=== PATIENT | female | born 1995 | race Two or more races ===

== ENCOUNTER 2016-12-07 12:30 | Inpatient (IN) | payer OTHER ==
[~2016-12-07] VITALS: Ht 160 cm; Wt 56.2 kg
[2016-12-07 12:39] VITALS: BP 129/77
[2016-12-07] MEDS ORDERED: NKM (12:48)
[2016-12-07] MEDS ORDERED: Unasyn 3gm Inj IVPB ONE (13:00)
[2016-12-07] MEDS ORDERED: Ampicillin/Sulbactam Sod 3 GM in NS 110 ML IVPB ONE (13:15)
[2016-12-07 13:37] LABS: BASOPHILS % (AUTO) 0.6 % (0.0-2.0); EOSINOPHILS % (AUTO) 0.8 % (0.0-3.0); LYMPHOCYTES % (AUTO) 26.1 % (20.0-45.0); MEAN CORPUSCULAR HEMOGLOBIN 30.3 PG (27.0-31.0); MEAN CORPUSCULAR HGB CONC 34.5 G/DL (32.0-36.0); MEAN CORPUSCULAR VOLUME 88 FL (80-99); MEAN PLATELET VOLUME 7.7 FL (6.5-10.1); MONOCYTES % (AUTO) 5.3 % (1.0-10.0); NEUTROPHILS % (AUTO) 67.2 % (45.0-75.0); PLATELET COUNT 315 K/UL (150-450); RED BLOOD COUNT 4.47 M/UL (4.20-5.40); RED CELL DISTRIBUTION WIDTH 10.8 % (11.6-14.8); WHITE BLOOD COUNT 8.2 K/UL (4.8-10.8)
[2016-12-07 13:41] LABS: APPEARANCE,URINE CLOUDY; KETONES,URINE NEGATIVE (NEGATIVE); LEUKOCYTE ESTERASE ,URINE 3+ (NEGATIVE); NITRITE,URINE POSITIVE (NEGATIVE); PH,URINE 7 (4.5-8.0); PROTEIN,URINE NEGATIVE (NEGATIVE); UROBILINOGEN,URINE NORMAL MG/DL (0.0-1.0)
[2016-12-07 13:45] LABS: INR 0.9 (0.9-1.1); PROTHROMBIN TIME 9.4 SEC (9.30-11.50)
[2016-12-07 13:51] LABS: ALANINE AMINOTRANSFERASE 11 U/L (3-33); ALBUMIN/GLOBULIN RATIO 1.4 (1.0-2.7); ANION GAP 18 (5-15); ASPARTATE AMINO TRANSFERASE 19 U/L (5-40); CALCIUM 9.6 mg/dL (8.6-10.2); CARBON DIOXIDE 22 mEQ/L (20-30); CHLORIDE 101 mEQ/L (98-107); CREATININE 0.6 mg/dL (0.5-0.9); GLOMERULAR FILTRATION RATE > 60 mL/min (>60); HEMOLYSIS 17; LIPASE 45 U/L (< 60); POTASSIUM 3.9 mEQ/L (3.4-4.9); SODIUM 141 mEQ/L (135-145); TOTAL PROTEIN 7.6 g/dL (6.6-8.7)
[2016-12-07 14:11] LABS: BACTERIA,URINE MODERATE /HPF; RBC,URINE 0-2 /HPF (0 - 2); SQUAMOUS EPITHELIAL CELL,UR FEW /LPF (NONE/OCC); WBC,URINE 30-40 /HPF (0 - 2)
[2016-12-07] MEDS ORDERED: Morphine Sulfate 2mg/ml Inj IVP PRN (14:30)
[2016-12-07] MEDS ORDERED: Mylanta II UD 30ml ORAL PRN (14:30)
[2016-12-07] MEDS ORDERED: Morphine Sulfate 4mg/ml Inj IVP PRN (14:30)
[2016-12-07 16:00] VITALS: BP 117/71
--- NOTE | 2016-12-07 16:37 | Emergency Room Report ---
History of Present Illness General Chief Complaint: General Complaint Source: Patient Present Illness [facility] The patient is a 21-year-old female with a history of hidradenitis suppurativa presenting for admission for the same diagnosis. She states that she has had this infection on and off for many years which has been treated many times with oral antibiotics but has always return. She states that the infection is in the inguinal regions and between the breasts. She was seen by Dr. Laird who will be performing her surgery tomorrow. She denies any symptoms including nausea, vomiting, fever, chills, pain, dysuria, hematuria, diarrhea Allergies: Coded Allergies: No Known Allergies (Unverified , 12/07/16) Patient History Past Medical History: see triage record Pertinent Family History: none Last Menstrual Period: 11/21/2016 Now: No Reviewed Nursing Documentation: PMH: Agreed, PSxH: Agreed Nursing Documentation-PMH Past Medical History: No History, Except For Hx Cardiac Problems: No Hx Cancer: No Hx Gastrointestinal Problems: No Hx Neurological Problems: No Review of Systems All Other Systems: negative except mentioned in HPI Physical Exam Vital Signs Date Time Temp Pulse Resp B/P (MAP) Pulse Ox O2 Delivery O2 Flow Rate FiO2 12/07/16 12:39 98.4 76 14 129/77 99 Room Air Sp02 EP Interpretation: reviewed, normal General Appearance: no apparent distress, alert, GCS 15, non-toxic Head: normocephalic, atraumatic Eyes: bilateral eye normal inspection, bilateral eye PERRL ENT: hearing grossly normal, normal pharynx, no angioedema, normal voice Neck: full range of motion, supple/symm/no masses Respiratory: chest non-tender, lungs clear, normal breath sounds, speaking full sentences Cardiovascular #1: regular rate, rhythm, no edema Musculoskeletal: back normal, gait/station normal, normal range of motion, non- tender Neurologic: alert, oriented x3, responsive, motor strength/tone normal, sensory intact, speech normal Psychiatric: judgement/insight normal, memory normal, mood/affect normal, no suicidal/homicidal ideation Skin: rash - Multiple nodules consistent with hidradenitis supurrativa of the inguinal regions and central chest Lymphatic: no adenopathy Medical Decision Making PA Attestation Dr. Donnelly is my supervising physician. Patient management was discussed with my supervising physician Diagnostic Impression: Primary Impression: Encounter for generalized patient complaints Additional Impressions: Abscess Urinary tract infection Qualified Codes: N30.00 - Acute cystitis without hematuria ER Course The patient is a 21-year-old female with a history of hidradenitis suppurativa presenting for admission Differential diagnoses considered but not limited to: Cellulitis, abscess, dermatitis, hidradenitis suppurativa, among others PE: afebrile. NAD Multiple erythematous nodules in the inguinal regions and central chest consistent with hidradenitis suppurativa. No draining. Minimally tender. No surrounding erythema. Otherwise exam unremarkable Bloodwork unremarkable. No leukocytosis Urinalysis is consistent with urinary tract infection The patient is given IV fluids and Unasyn. She'll be admitted in stable condition for surgery tomorrow. She agrees with this plan Laboratory Tests Test 12/07/16 12:43 12/07/16 13:15 Urine Color Pale yellow Urine Appearance Cloudy Urine pH 7 (4.5-8.0) Urine Specific [place] 1.005 (1.005-1.035) Urine Protein Negative (NEGATIVE) Urine Glucose (UA) Negative (NEGATIVE) Urine Ketones Negative (NEGATIVE) Urine Occult Blood Negative (NEGATIVE) Urine Nitrite Positive (NEGATIVE) H Urine Bilirubin Negative (NEGATIVE) Urine Urobilinogen Normal MG/DL (0.0-1.0) Urine Leukocyte Esterase 3+ (NEGATIVE) H Urine RBC 0-2 /HPF (0 - 2) Urine WBC 30-40 /HPF (0 - 2) H Urine Squamous Epithelial Cells Few /LPF (NONE/OCC) Urine Bacteria Moderate /HPF (NONE) H Urine HCG, Qualitative Negative White Blood Count 8.2 K/UL (4.8-10.8) Red Blood Count 4.47 M/UL (4.20-5.40) Hemoglobin 13.6 G/DL (12.0-16.0) Hematocrit 39.3 % (37.0-47.0) Mean Corpuscular Volume 88 FL (80-99) Mean Corpuscular Hemoglobin 30.3 PG (27.0-31.0) Mean Corpuscular Hemoglobin Concent 34.5 G/DL (32.0-36.0) Red Cell Distribution Width 10.8 % (11.6-14.8) L Platelet Count 315 K/UL (150-450) Mean Platelet Volume 7.7 FL (6.5-10.1) Neutrophils (%) (Auto) 67.2 % (45.0-75.0) Lymphocytes (%) (Auto) 26.1 % (20.0-45.0) Monocytes (%) (Auto) 5.3 % (1.0-10.0) Eosinophils (%) (Auto) 0.8 % (0.0-3.0) Basophils (%) (Auto) 0.6 % (0.0-2.0) Prothrombin Time 9.4 SEC (9.30-11.50) Prothrombin Time INR 0.9 (0.9-1.1) PTT 25 SEC (23-33) Sodium Level 141 mEQ/L (135-145) Potassium Level 3.9 mEQ/L (3.4-4.9) Chloride Level 101 mEQ/L (98-107) Carbon Dioxide Level 22 mEQ/L (20-30) Anion Gap 18 (5-15) H Blood Urea Nitrogen 7 mg/dL (7-23) Creatinine 0.6 mg/dL (0.5-0.9) Estimate Glomerular Filtration Rate > 60 mL/min (>60) Glucose Level 100 mg/dL (74-106) Calcium Level 9.6 mg/dL (8.6-10.2) Total Bilirubin 0.3 mg/dL (0.0-1.2) Aspartate Amino Transferase (AST) 19 U/L (5-40) Alanine Aminotransferase (ALT) 11 U/L (3-33) Alkaline Phosphatase 77 U/L (35-104) Total Protein 7.6 g/dL (6.6-8.7) Albumin 4.5 g/dL (3.5-5.2) Globulin 3.1 g/dL Albumin/Globulin Ratio 1.4 (1.0-2.7) Lipase 45 U/L (< 60) Lab Results Impression All blood work is unremarkable. Urinalysis is consistent with urinary tract infection Last Vital Signs Date Time Temp Pulse Resp B/P (MAP) Pulse Ox O2 Delivery O2 Flow Rate FiO2 12/07/16 14:53 98.4 81 16 127/75 100 Room Air Status: improved Disposition: ADMITTED INPATIENT Condition: Stable Referrals: [facility] (PCP) TED FOSTER Dec 07, 2016 16:37
--- NOTE | 2016-12-07 17:03 | History and Physical ---
History of Present Illness General Date patient seen: Dec 07, 2016 Time patient seen: 17:03 Reason for Hospitalization: abscess Present Illness HPI 21y/o female with pmh of hidradenitis suppurativa presenting with worsening pain /swelling/redness/drainages. She states that she has had this infection on and off for many years which has been treated many times with oral antibiotics but it has always returned. She states that the infection is in the inguinal regions and between the breasts. Symptoms are worsening. No reports of f/c, n/v , d/c, chest pain, SOB. At baseline pt able to ambulate several blocks and climb several flights of stairs without chest pain and SOB. Allergies: Coded Allergies: No Known Allergies (Unverified , 12/07/16) Medication History Scheduled No Known Medications* (NKM - No Known Medications*), 0 ., (Reported) Patient History History Provided By: Patient, Family Member, Medical Record, PMD Healthcare decision maker Resuscitation status Full Code Advanced Directive on File Past Medical/Surgical History Past Medical/Surgical History: (1) Hidradenitis suppurativa Family History Family History: Patient reports no known family medical history. Social History Social History: (1) No significant social history Review of Systems ROS Narrative CONSTITUTIONAL: No weight loss, fever, chills, weakness or fatigue. HEENT: Eyes: No visual loss, blurred vision, double vision or yellow sclerae. Ears, Nose, Throat: No hearing loss, sneezing, congestion, runny nose or sore throat. SKIN: No rash or itching. CARDIOVASCULAR: No chest pain, chest pressure or chest discomfort. No palpitations or edema. RESPIRATORY: No shortness of breath, cough or sputum. GASTROINTESTINAL: No anorexia, nausea, vomiting or diarrhea. No abdominal pain or blood. NEUROLOGICAL: No headache, dizziness, syncope, paralysis, ataxia, numbness or tingling in the extremities. No change in bowel or bladder control. MUSCULOSKELETAL: No muscle, back pain, joint pain or stiffness. HEMATOLOGIC: No anemia, bleeding or bruising. LYMPHATICS: No enlarged nodes. No history of splenectomy. PSYCHIATRIC: No history of depression or anxiety. ENDOCRINOLOGIC: No reports of sweating, cold or heat intolerance. No polyuria or polydipsia. ALLERGIES: No history of asthma, hives, eczema or rhinitis. Physical Exam Physical Exam Narrative General: alert, cooperative, no distress, appears stated age Head: normocephalic, without obvious abnormality, atraumatic Eyes: conjunctivae/corneas clear. PERRL, EOM's intact Throat: lips, mucosa, and tongue normal. MMM Neck: supple, symmetrical, trachea midline, and no JVD Lungs: clear to auscultation bilaterally Heart: regular rate and rhythm, S1, S2 normal, no murmur, click, rub or gallop Abdomen: soft, non-tender, non-distended, bowel sounds normal; no masses or organomegaly Extremities: extremities normal, atraumatic, no cyanosis or edema Pulses: 2+ and symmetric Skin: Multiple nodules consistent with hidradenitis supurrativa of the inguinal regions and central chest Neurologic: grossly normal, no focal deficits Last 24 Hour Vital Signs Date Time Temp Pulse Resp B/P (MAP) Pulse Ox O2 Delivery O2 Flow Rate FiO2 12/07/16 16:00 98.5 90 16 117/71 98 Room Air 12/07/16 14:53 98.4 81 16 127/75 100 Room Air 12/07/16 12:39 98.4 76 14 129/77 99 Room Air 12/07/16 12:39 98.4 76 14 129/77 99 Room Air Intake and Output 12/07/16 12/08/16 19:00 07:00 Intake Total 1110 ml Balance 1110 ml Intake IV Total 1110 ml # Voids 1 Laboratory Tests Test 12/07/16 12:43 12/07/16 13:15 Urine Color Pale yellow Urine Appearance Cloudy Urine pH 7 (4.5-8.0) Urine Specific [place] 1.005 (1.005-1.035) Urine Protein Negative (NEGATIVE) Urine Glucose (UA) Negative (NEGATIVE) Urine Ketones Negative (NEGATIVE) Urine Occult Blood Negative (NEGATIVE) Urine Nitrite Positive (NEGATIVE) H Urine Bilirubin Negative (NEGATIVE) Urine Urobilinogen Normal MG/DL (0.0-1.0) Urine Leukocyte Esterase 3+ (NEGATIVE) H Urine RBC 0-2 /HPF (0 - 2) Urine WBC 30-40 /HPF (0 - 2) H Urine Squamous Epithelial Cells Few /LPF (NONE/OCC) Urine Bacteria Moderate /HPF (NONE) H Urine HCG, Qualitative Negative White Blood Count 8.2 K/UL (4.8-10.8) Red Blood Count 4.47 M/UL (4.20-5.40) Hemoglobin 13.6 G/DL (12.0-16.0) Hematocrit 39.3 % (37.0-47.0) Mean Corpuscular Volume 88 FL (80-99) Mean Corpuscular Hemoglobin 30.3 PG (27.0-31.0) Mean Corpuscular Hemoglobin Concent 34.5 G/DL (32.0-36.0) Red Cell Distribution Width 10.8 % (11.6-14.8) L Platelet Count 315 K/UL (150-450) Mean Platelet Volume 7.7 FL (6.5-10.1) Neutrophils (%) (Auto) 67.2 % (45.0-75.0) Lymphocytes (%) (Auto) 26.1 % (20.0-45.0) Monocytes (%) (Auto) 5.3 % (1.0-10.0) Eosinophils (%) (Auto) 0.8 % (0.0-3.0) Basophils (%) (Auto) 0.6 % (0.0-2.0) Prothrombin Time 9.4 SEC (9.30-11.50) Prothromb Time International Ratio 0.9 (0.9-1.1) Activated Partial Thromboplast Time 25 SEC (23-33) Sodium Level 141 mEQ/L (135-145) Potassium Level 3.9 mEQ/L (3.4-4.9) Chloride Level 101 mEQ/L (98-107) Carbon Dioxide Level 22 mEQ/L (20-30) Anion Gap 18 (5-15) H Blood Urea Nitrogen 7 mg/dL (7-23) Creatinine 0.6 mg/dL (0.5-0.9) Estimat Glomerular Filtration Rate > 60 mL/min (>60) Glucose Level 100 mg/dL (74-106) Calcium Level 9.6 mg/dL (8.6-10.2) Total Bilirubin 0.3 mg/dL (0.0-1.2) Aspartate Amino Transf (AST/SGOT) 19 U/L (5-40) Alanine Aminotransferase (ALT/SGPT) 11 U/L (3-33) Alkaline Phosphatase 77 U/L (35-104) Total Protein 7.6 g/dL (6.6-8.7) Albumin 4.5 g/dL (3.5-5.2) Globulin 3.1 g/dL Albumin/Globulin Ratio 1.4 (1.0-2.7) Lipase 45 U/L (< 60) Height (Feet): 5 Height (Inches): 4.00 Weight (Pounds): 125 Medications Current Medications Medications (Trade) Dose Ordered Sig/Coty Route PRN Reason Start Time Stop Time Status Last Admin Dose Admin Acetaminophen (Tylenol) 650 mg Q4H PRN ORAL Mild Pain (Pain Scale 1-3) 12/07/16 14:30 01/06/17 14:29 Al Hydroxide/Mg Hydroxide (Mylanta II) 30 ml Q6H PRN ORAL dyspepsia 12/07/16 14:30 01/06/17 14:29 Bisacodyl (Dulcolax) 10 mg HSPRN PRN RECTAL Constipation 12/07/16 21:00 01/06/17 20:59 Dextrose (Dextrose 50%) STAT PRN IV Hypoglycemia 12/07/16 14:30 01/06/17 14:29 Dextrose/Sodium Chloride 1,000 ml @ 75 mls/hr [id number] IV 12/08/16 06:00 01/07/17 05:59 Diphenhydramine HCl (Benadryl) 25 mg Q6H PRN ORAL Itching/Pruritis 12/07/16 14:30 01/06/17 14:29 Docusate Sodium (Colace) 100 mg EVERY 12 HOURS ORAL 12/07/16 21:00 01/06/17 20:59 Magnesium Hydroxide (Mom) 30 ml HSPRN PRN ORAL Constipation 12/07/16 21:00 01/06/17 20:59 Morphine Sulfate (Morphine Sulfate) 2 mg Q4H PRN IVP Moderate Pain (Pain Scale 4-6) 12/07/16 14:30 12/14/16 14:29 Morphine Sulfate (Morphine Sulfate) 4 mg Q4H PRN IVP Severe Pain (Pain Scale 7-10) 12/07/16 14:30 12/14/16 14:29 Polyethylene Glycol (Miralax) 17 gm HSPRN PRN ORAL Constipation 12/07/16 21:00 01/06/17 20:59 Zolpidem Tartrate (Ambien) 5 mg HSPRN PRN ORAL Insomnia 12/07/16 21:00 12/14/16 20:59 Assessment/Plan Problem List: (1) Abscess ICD Codes: L02.91 - Cutaneous abscess, unspecified SNOMED: 561724320 (2) Hidradenitis suppurativa ICD Codes: L73.2 - Hidradenitis suppurativa SNOMED: 10718324 Status: stable Assessment/Plan Admit inpt Plastic surgery consulted Check blood cultures x 2 IV ancef Pain control, bowel regimen Supportive care If patient is required to have surgery, based on the patient's medical history, and other available ancillary data, the patient is a LOW risk for an INTERMEDIATE risk procedure. Per the most recent ACC/AHA guidelines, the patient does not need any further cardiopulmonary testing prior to the procedure and there do not appear to be any clear medical contraindications to proceeding with the proposed procedure. D/w pt/family, RN, surgery regarding mgmt and dispo. D/w Dr. Laird regarding plan for OR tomorrow Roberta Grider M.D. Dec 07, 2016 17:03
[2016-12-07 20:00] VITALS: BP 133/92
[2016-12-07] MEDS ORDERED: Miralax 17gm pkt ORAL PRN (21:00)
[2016-12-07] MEDS ORDERED: Milk of Magnesia 30ml Ud ORAL PRN (21:00)
[2016-12-07] MEDS ORDERED: Zolpidem 5mg tab ORAL PRN (21:00)
[2016-12-07] MEDS: Docusate 100mg cap ORAL SCH (21:02)
[2016-12-07] MEDS: ceFAZolin 1gm in D5W 55ml IVP SCH (21:02)
[2016-12-07] MEDS ORDERED: ceFAZolin 1gm/50ml Premix 50 ML IV SCH (22:00)
[2016-12-08] VITALS (15 sets, daily range): BP systolic 111–132; BP diastolic 66–86
[2016-12-08] MEDS: D5 1/2NS 1,000 ML IV SCH ×2 (05:32→19:20)
[2016-12-08] MEDS: ceFAZolin 1gm in D5W 55ml IVP SCH ×3 (05:32→20:59)
[2016-12-08] MEDS: Docusate 100mg cap ORAL SCH ×2 (08:04→20:59)
--- NOTE | 2016-12-08 10:00 | Pre-Procedure Note/Attestation ---
Pre-Procedure Note/Attestation Complete Prior to Procedure Planned Procedure: bilateral Procedure Narrative: Debridement of bilateral groin tissue and flap closure with excision of central chest tissue Attestation I attest that I discussed the nature of the procedure; its benefits; risks and complications; and alternatives (and the risks and benefits of such alternatives ), prior to the procedure, with the patient (or the patient's legal field representatives director). I attest that, if there was a reasonable possibility of needing a blood transfusion, the patient (or the patient's legal field representatives director) was given the [facility] standardized written summary, pursuant to the [place] Blood Safety Act ([place] Health and Safety Code # 1645, as amended). I attest that I re-evaluated the patient just prior to the surgery and that there has been no change in the patient's H&P, except as documented below: WARREN HOLLOWAY Dec 08, 2016 10:00
[2016-12-08] MEDS ORDERED: NeoSporin Gu Irrig 1ml Amp IRRIG ONE (10:26)
[2016-12-08] MEDS ORDERED: Bacitracin 50000 Units Vial ONE (10:26)
[2016-12-08] MEDS ORDERED: Surgicel 4in x 8in TOPIC ONE (10:26)
[2016-12-08] MEDS ORDERED: Lidocaine 1% 10mg/ml/Epi 0.005mg/ml 10ml vial ONE ×2 (10:26→10:43)
[2016-12-08] MEDS ORDERED: Lidocaine 1% 10mg/ml/Epi 0.005mg/ml 30ml vial INJ ONE (10:30)
[2016-12-08] MEDS ORDERED: Ketorolac 30mg Inj ONE (10:45)
[2016-12-08] MEDS ORDERED: fentaNYL 100 mcg/2 mL IV ONE (10:45)
[2016-12-08] MEDS ORDERED: Morphine Sulfate 10mg/ml Inj ONE (10:45)
[2016-12-08] MEDS ORDERED: Propofol 200mg/20ml IV ONE (10:45)
[2016-12-08] MEDS ORDERED: Midazolam 2mg/2ml Inj ONE (10:45)
[2016-12-08] MEDS ORDERED: LR 1000ml ONE (10:45)
[2016-12-08] MEDS ORDERED: Rate Change PCA 1 Each MISC PRN (11:00)
[2016-12-08] MEDS ORDERED: DiphenhydrAMINE 50mg/ml Inj IVP PRN ×2 (11:00→11:45)
[2016-12-08] MEDS ORDERED: PCA Education Pamphlet MISC SCH (11:00)
[2016-12-08] MEDS ORDERED: LR 1000ml 1,000 ML IVLG SCH (11:43)
[2016-12-08] MEDS ORDERED: Neosporin Oint Ud Pkt TOPIC ONE (11:43)
--- NOTE | 2016-12-08 11:43 | Anethesia Preoperative Eval ---
Anesthesia Pre-op PMH/ROS General Date of Evaluation: Dec 08, 2016 Time of Evaluation: 10:40 Anesthesiologist: Laurel ASA Score: ASA 2 Mallampati Score Class I : Soft palate, uvula, fauces, pillars visible Class II: Soft palate, uvula, fauces visible Class III: Soft palate, base of uvula visible Class IV: Only hard plate visible Mallampati Classification: Class II Surgeon: Sisi Diagnosis: recurrent HS Surgical Procedure: Excision of bilateral groin HS Anesthesia History: none Family History: no anesthesia problems Allergies: Coded Allergies: No Known Allergies (Unverified , 12/07/16) Medications: see eMAR Past Medical History Cardiovascular: Denies: HTN, CAD, [place], valve dz, arrhythmia, other Pulmonary: Denies: asthma, COPD, [place], other Gastrointestinal/Genitourinary: Denies: GERD, CRI, ESRD, other Neurologic/Psychiatric: Reports: depression/anxiety, Denies: dementia, CVA, TIA, other Endocrine: Denies: DM, hypothyroidism, steroids, other HEENT: Denies: cataract (L), cataract (R), glaucoma, [place] (L[place] (R), other Hematology/Immune: Denies: anemia, DVT, bleeding disorder, other Musculoskeletal/Integumentary: Reports: other - recurrent hs, Denies: OA, RA, DJD, DDD, edema PMH Narrative: as above PSxH Narrative: excision of pilonidal cyst Anesthesia Pre-op Phys. Exam Physician Exam Last Vital Signs Date Time Temp Pulse Resp B/P (MAP) Pulse Ox O2 Delivery O2 Flow Rate FiO2 12/08/16 08:35 99.7 119 17 131/86 97 Room Air Constitutional: NAD Neurologic: CN 2-12 intact Cardiovascular: RRR, no M/R/G Respiratory: CTA Gastrointestinal: S/NT/ND Airway Exam Mallampati Score: Class II MO: full Neck: flexivle ROM: full Teeth: intact Dentures: no upper, no lower Anesthesia Pre-op A/P Labs Hematology Test 12/07/16 13:15 White Blood Count 8.2 K/UL (4.8-10.8) Red Blood Count 4.47 M/UL (4.20-5.40) Hemoglobin 13.6 G/DL (12.0-16.0) Hematocrit 39.3 % (37.0-47.0) Mean Corpuscular Volume 88 FL (80-99) Mean Corpuscular Hemoglobin 30.3 PG (27.0-31.0) Mean Corpuscular Hemoglobin Concent 34.5 G/DL (32.0-36.0) Red Cell Distribution Width 10.8 % (11.6-14.8) L Platelet Count 315 K/UL (150-450) Mean Platelet Volume 7.7 FL (6.5-10.1) Neutrophils (%) (Auto) 67.2 % (45.0-75.0) Lymphocytes (%) (Auto) 26.1 % (20.0-45.0) Monocytes (%) (Auto) 5.3 % (1.0-10.0) Eosinophils (%) (Auto) 0.8 % (0.0-3.0) Basophils (%) (Auto) 0.6 % (0.0-2.0) Coagulation Test 12/07/16 13:15 Prothrombin Time 9.4 SEC (9.30-11.50) Prothromb Time International Ratio 0.9 (0.9-1.1) Activated Partial Thromboplast Time 25 SEC (23-33) Chemistry Test 12/07/16 13:15 Sodium Level 141 mEQ/L (135-145) Potassium Level 3.9 mEQ/L (3.4-4.9) Chloride Level 101 mEQ/L (98-107) Carbon Dioxide Level 22 mEQ/L (20-30) Anion Gap 18 (5-15) H Blood Urea Nitrogen 7 mg/dL (7-23) Creatinine 0.6 mg/dL (0.5-0.9) Estimat Glomerular Filtration Rate > 60 mL/min (>60) Glucose Level 100 mg/dL (74-106) Calcium Level 9.6 mg/dL (8.6-10.2) Total Bilirubin 0.3 mg/dL (0.0-1.2) Aspartate Amino Transf (AST/SGOT) 19 U/L (5-40) Alanine Aminotransferase (ALT/SGPT) 11 U/L (3-33) Alkaline Phosphatase 77 U/L (35-104) Total Protein 7.6 g/dL (6.6-8.7) Albumin 4.5 g/dL (3.5-5.2) Globulin 3.1 g/dL Albumin/Globulin Ratio 1.4 (1.0-2.7) Lipase 45 U/L (< 60) Urine Test Test 12/07/16 12:43 Urine HCG, Qualitative Negative Risk Assessment & Plan Assessment: ASA 2 Plan: GA wt LMA ponv prevention Status Change Before Surgery: No Pre-Antibiotics Drug: Ancef 1gr. Given Within 1 Hr of Incision: Yes Time Given: 11:10 MIKAYLA TORRES M.D. Dec 08, 2016 11:43
[2016-12-08] MEDS ORDERED: Meperidine 25mg/0.5ml Inj (FOR RIGORS ONLY) IV PRN (11:45)
[2016-12-08] MEDS ORDERED: Hydromorphone 0.5mg/0.5ml inj IVP PRN (11:45)
[2016-12-08] MEDS ORDERED: Metoclopramide 10mg/2ml Inj IVP PRN (11:45)
[2016-12-08] MEDS ORDERED: Midazolam 2mg/2ml Inj IVP PRN (11:45)
[2016-12-08] MEDS ORDERED: Ketorolac 30mg Inj IV PRN (11:45)
--- NOTE | 2016-12-08 12:45 | Operative Note - PDOC ---
Operative Note Operative Note Pre-op Diagnosis: Bilateral groin and chest wall infection HS Procedure: Debridement of bilateral groin and chest wall tissue with flap elevation and closure of the groin wounds Surgeon: [facility] Security Director: Yoandy Anesthesia: general Specimen: yes Complications: none Condition: stable Estimated Blood Loss: minimal Drains: DENNISE Implant(s) used?: No WARREN HOLLOWAY Dec 08, 2016 12:45
--- NOTE | 2016-12-08 13:00 | Immediate Post-Op Evaluation ---
Immediate Post-Op Evalulation Immediate Post-Op Evalulation Procedure: Excision of bilateral groin and chest wall HS Date of Evaluation: Dec 08, 2016 Time of Evaluation: 12:59 IV Fluids: 1200 Blood Products: none Estimated Blood Loss: 50 Urinary Output: 150 Blood Pressure Systolic: 124 Blood Pressure Diastolic: 73 Pulse Rate: 108 Respiratory Rate: 20 O2 Sat by Pulse Oximetry: 99 Temperature (Fahrenheit): 98.1 Pain Score (1-10): 2 Nausea: No Vomiting: No Complications none Patient Status: reacts, patent, none MIKAYLA TORRES M.D. Dec 08, 2016 13:00
[2016-12-08] MEDS: PCA HYDROmorphone 1mg/ml 30 ML IV PRN (13:06)
[2016-12-08] MEDS ORDERED: Tubing IV Secondary IV ONE (16:25)
[2016-12-08] MEDS ORDERED: D5 1/2NS 1000ml IV ONE (16:25)
--- NOTE | 2016-12-08 16:31 | Cardiology Report ---
APPROVED REPORT EKG Measurement Heart [id number] [id number] Sinus rhythm with short GA Abnormal QRS-T angle, consider primary T wave abnormality Abnormal ECG
[2016-12-08] MEDS ORDERED: Docusate 100mg cap ORAL SCH (18:00)
[2016-12-08] MEDS ORDERED: LORazepam 0.5mg tab ORAL ONE (18:30)
[2016-12-08] MEDS ORDERED: LORazepam Inj 2mg/ml 1ml IV ONE (18:30)
[2016-12-08] MEDS: PCA shift volume MISC SCH (19:50)
[2016-12-08] MEDS: Heparin 5000 units/ml inj SUBQ SCH (21:04)
--- NOTE | 2016-12-09 00:15 | Consultation ---
DATE OF CONSULTATION: 12/08/2016 History Of Present Illness: This is a 21-year-old female, admitted by the medical team for bilateral groin and chest wall abscesses associated with hidradenitis. She was started on IV antibiotics and upon evaluation by me, I felt that she was an appropriate candidate for surgical treatment of her condition. PAST MEDICAL HISTORY: Significant for hidradenitis suppurativa. PAST SURGICAL HISTORY: None. MEDICATIONS: Previous use of Humira. ALLERGIES: None. PHYSICAL EXAMINATION: GENERAL: The patient is alert and oriented. HEART: Regular rhythm. LUNGS: Clear to auscultation bilaterally. Skin: She has evidence of an abscess in the central chest, just over the sternum in the cleavage region and she also has evidence of bilateral groin hidradenitis, stage II. Assessment And Plan: This is a 21-year-old female, will require radical excision of the involved infected tissues in her groins and her chest with reconstruction. She understands the plan and agrees to proceed. Wilmer Laird M.D. DR: APPLE JOB#: [id number] CC:
--- NOTE | 2016-12-09 00:30 | Operative Note - Dictated ---
DATE OF OPERATION: 12/08/2016 PREOPERATIVE DIAGNOSES: 1. Central chest wall abscess associated with hidradenitis. 2. Bilateral groin infected tissue. POSTOPERATIVE DIAGNOSES: 1. Central chest wall abscess associated with hidradenitis. 2. Bilateral groin infected tissue. PROCEDURES: 1. Radical excision of right groin tissue. 2. Radical excision of left groin tissue. 3. Elevation of a right-sided medial thigh flap for closure of right groin wound. 4. Elevation of a right-sided medial groin flap for closure of right groin wound. 5. Elevation of a left-sided medial thigh flap for closure of left groin wound. 6. Elevation of a left medial groin flap for closure of left groin wound. 7. Radical excision of central chest wall tissue. SURGEON: Wilmer Laird M.D. AGRICULTURAL EQUIPMENT SALES ENGINEER: Andrea Pitt M.D. ANESTHESIA: General. COMPLICATIONS: None. DRAINS: Included one DENNISE in each groin. DISPOSITION: Stable to the recovery room. Indications For Surgery: This is a 21-year-old female, who has a history of hidradenitis suppurativa with evidence of infected tissues in her groin as well as in her central chest. Upon evaluation by me, I felt that she was an appropriate candidate for radical excision of these areas with a staged reconstruction. The degree of infection in her central chest was more so than it was present in her groins and I felt that the groins could be primarily closed with flap elevation, however, the central chest wound had enough infection where I felt that she would require a staged approach for closure of this area. She understood the risks and benefits of surgery and agreed to proceed. Details Of The Operation: The patient was brought to the operating room and laid supine on the operating room table. Her bilateral groin and her chest were prepped and draped in a sterile and usual fashion. We first began by marking out the areas of infected tissues in both groins. These were marked out with an elliptical type of incisions. Once this was done, we injected a total of 5 mL of lidocaine with epinephrine into each groin and then used a #10 blade to first make a left-sided groin incision to completely radically excise the infected tissue all the way down to the level of the adductor fascia. Once the specimen was completely removed with the use of a knife and electrocautery, we noted the defect that resulted in the left side was 10 x 5 cm and was clearly not amenable to definitive primary closure. As such, flaps had to be elevated on both sides of the wound to allow for a tension-free repair. We first began by elevating the medial thigh flap on that side based off of perforators of the superficial femoral artery with proximal and distal incisions made to fully mobilize the flap and the flap was elevated just above the adductor fascia. We then proceeded to elevate the medial groin flap on the same side based off of perforators of the superficial inferior epigastric artery with proximal and distal incisions made to fully mobilize this flap. With this done, we noted that the flap could be brought together without any tension and definitively close the wound. In a similar fashion, the contralateral groin was addressed by using a #10 blade to make the skin incision. An electrocautery was used to radically excise the tissue all the way down to the level of the adductor fascia. Once this was done, the defect that resulted on this side was 12 x 6 cm and this was also not amenable to definitive primary closure. As such, flaps were elevated on both sides of the wound to allow for a tension-free repair. The medial thigh flap that was elevated on this side was similarly raised based off of perforators of the superficial femoral artery with proximal and distal incisions made to fully mobilize the flap and the flap was elevated above the adductor fascia and again on the same side, we performed advancement of a medial groin flap based off of perforators of the superficial inferior epigastric artery with proximal and distal incisions made to fully mobilize the flap as well. Both wounds were then copiously irrigated with pulse lavage and once hemostasis was achieved, the flaps in the left groin were brought in opposition using #0 and 2-0 Vicryl sutures and a 3-0 Prolene continuous stitch with reinforcement using 2-0 Prolene was used to close that side and in a similar fashion, the contralateral groin wound was also closed. Once these groin wounds were completely closed, Dermabond was applied to the skin and dressings were applied. We then turned our attention to the central chest infection. This was an area that was rectangular in distribution and an elliptical type of design was made around this area of infection measuring approximately 5 x 2 cm. Lidocaine with epinephrine was injected into the area and a #15 blade was then used to make the incision all the way down to the level of the fascia. The tissue was radically excised and the defect that resulted was 8 x 5 cm and was also not amenable to definitive primary closure at this time. However given the level of infection of this wound, I felt that it was appropriate to delayed the flap closure of the area for 48 hours. So, the wound was covered with a wet-to-dry dressing and the patient will be brought back in 48 hours for definitive closure to minimize the risk of wound infection. All sponge counts and needle counts were correct. The patient tolerated the procedure well. There were no complications. Wilmer Laird M.D. DR: TWIN JOB#: [id number] CC:
[2016-12-09 04:00] VITALS: BP 134/90
--- NOTE | 2016-12-09 05:40 | General Progress Note ---
Assessment/Plan Problem List: (1) Abscess ICD Codes: L02.91 - Cutaneous abscess, unspecified SNOMED: 798801432 (2) Hidradenitis suppurativa ICD Codes: L73.2 - Hidradenitis suppurativa SNOMED: 44420107 (3) Postoperative nausea and vomiting ICD Codes: R11.2 - Nausea with vomiting, unspecified; Z98.890 - Other specified postprocedural states SNOMED: 2215652 Status: stable Assessment/Plan Plastic surgery consulted s/p /p debridement of bilateral groin and chest wall tissue with flap elevation and closure of the groin wounds on 12/08/16 - encourage mobilization/ambulation - encourage incentive spirometry to optimize pulmonary hygiene - DVT/GI prophylaxis as appropriate--SCDs, HSQ F/u blood cultures x 2 IV ancef Pain control, bowel regimen Supportive care Nausea control A total of 32min of extra time was spent in addition to normal encounter time for care/coordination and counseling. D/w pt/family, RN, surgery regarding mgmt and dispo. D/w RN re nausea and anxiety mgmt Subjective Date patient seen: Dec 08, 2016 Time patient seen: 12:30 Constitutional: Reports: no symptoms HEENT: Reports: no symptoms Cardiovascular: Reports: no symptoms Respiratory: Reports: no symptoms Gastrointestinal/Abdominal: Reports: nausea, vomiting Genitourinary: Reports: no symptoms Neurologic/Psychiatric: Reports: no symptoms Endocrine: Reports: no symptoms Hematologic/Lymphatic: Reports: no symptoms Allergies: Coded Allergies: No Known Allergies (Unverified , 12/07/16) All Systems: reviewed and negative except above Subjective No acute o/n events s/p debridement of bilateral groin and chest wall tissue with flap elevation and closure of the groin wounds today Pt w/ nausea and some emesis after eating. Pain controlled. Denies f/c, chest pain, SOB Objective Last 24 Hour Vital Signs Date Time Temp Pulse Resp B/P (MAP) Pulse Ox O2 Delivery O2 Flow Rate FiO2 12/09/16 00:00 16 12/08/16 20:00 16 12/08/16 20:00 98.1 84 16 113/66 99 Room Air 12/08/16 16:00 91 17 128/73 99 Nasal Cannula 3.0 12/08/16 15:31 17 12/08/16 15:30 88 17 125/70 99 Nasal Cannula 3.0 12/08/16 15:00 98 17 132/81 100 Nasal Cannula 3.0 12/08/16 14:55 17 12/08/16 14:30 17 12/08/16 14:29 98.2 94 17 123/74 100 Nasal Cannula 3.0 12/08/16 14:15 17 12/08/16 13:57 97.6 101 17 132/79 100 Nasal Cannula 3.0 12/08/16 13:45 112 18 126/81 100 Nasal Cannula 3.0 12/08/16 13:45 15 12/08/16 13:45 97.6 12/08/16 13:45 97.6 12/08/16 13:45 97.6 12/08/16 13:30 95 15 131/83 100 Nasal Cannula 3.0 12/08/16 13:30 16 12/08/16 13:15 18 12/08/16 13:15 122 18 123/73 100 Nasal Cannula 3.0 12/08/16 13:06 19 12/08/16 13:05 106 19 120/77 100 Simple Mask 6.0 12/08/16 13:00 109 18 124/72 100 Simple Mask 6.0 12/08/16 13:00 108 20 99 12/08/16 12:52 97.4 103 14 116/67 100 Simple Mask 6.0 12/08/16 08:35 99.7 119 17 131/86 97 Room Air Height (Feet): 5 Height (Inches): 4.00 Weight (Pounds): 125 Objective General: alert, cooperative, no distress, appears stated age Head: normocephalic, without obvious abnormality, atraumatic Eyes: conjunctivae/corneas clear. PERRL, EOM's intact Throat: lips, mucosa, and tongue normal. MMM Neck: supple, symmetrical, trachea midline, and no JVD Lungs: clear to auscultation bilaterally Heart: regular rate and rhythm, S1, S2 normal, no murmur, click, rub or gallop Abdomen: soft, non-tender, non-distended, bowel sounds normal; no masses or organomegaly Extremities: extremities normal, atraumatic, no cyanosis or edema Pulses: 2+ and symmetric Neurologic: grossly normal, no focal deficits Roberta Grider M.D. Dec 09, 2016 05:40
[2016-12-09] MEDS: ceFAZolin 1gm in D5W 55ml IVP SCH ×3 (05:42→21:25)
[2016-12-09] MEDS: D5 1/2NS 1,000 ML IV SCH ×4 (06:00→19:20)
[2016-12-09] MEDS: PCA shift volume MISC SCH ×2 (07:00→19:23)
[2016-12-09 07:54] VITALS: BP 117/77
[2016-12-09] MEDS: Docusate 100mg cap ORAL SCH ×2 (09:52→21:24)
[2016-12-09] MEDS: Heparin 5000 units/ml inj SUBQ SCH ×2 (09:57→21:25)
--- NOTE | 2016-12-09 10:40 | General Progress Note ---
Progress Note Progress Note Pt seen and examined. Doing well. POD# 1 Dressings are CDI. To OR tomorrow for definitive closure of chest wound. Warren Holloway M.D. WARREN HOLLOWAY Dec 09, 2016 10:40
[2016-12-09 11:44] VITALS: BP 120/75
--- NOTE | 2016-12-09 12:55 | 48 Hour Post Anesthesia Eval ---
Post Anesthesia Evaluation Procedure: Excision of bilateral groin and chest wall HS Date of Evaluation: Dec 09, 2016 Time of Evaluation: 12:54 Blood Pressure Systolic: 124 0: 72 Pulse Rate: 86 Respiratory Rate: 22 Temperature (Fahrenheit): 97.8 O2 Sat by Pulse Oximetry: 98 Airway: patent Nausea: No Vomiting: No Pain Intensity: 3 Hydration Status: adequate Cardiopulmonary Status: stable Mental Status/LOC: patient returned to baseline Follow-up Care/Observations: n/a Post-Anesthesia Complications: none Follow-up care needed: patient intructions given MIKAYLA TORRES M.D. Dec 09, 2016 12:55
[2016-12-09 16:03] VITALS: BP 116/77
[2016-12-09] MEDS: PCA HYDROmorphone 1mg/ml 30 ML IV PRN (16:13)
[2016-12-09 20:00] VITALS: BP 118/78
--- NOTE | 2016-12-09 23:13 | General Progress Note ---
Assessment/Plan Problem List: (1) Abscess ICD Codes: L02.91 - Cutaneous abscess, unspecified SNOMED: 764429775 (2) Hidradenitis suppurativa ICD Codes: L73.2 - Hidradenitis suppurativa SNOMED: 58797164 (3) Postoperative nausea and vomiting ICD Codes: R11.2 - Nausea with vomiting, unspecified; Z98.890 - Other specified postprocedural states SNOMED: 5520723 Status: stable Assessment/Plan Plastic surgery consulted s/p /p debridement of bilateral groin and chest wall tissue with flap elevation and closure of the groin wounds on 12/08/16 Plan for OR tomorrow encourage mobilization/ambulation encourage incentive spirometry to optimize pulmonary hygiene DVT/GI prophylaxis as appropriate--SCDs, HSQ F/u blood cultures x 2 IV ancef Pain control, bowel regimen Supportive care Nausea control A total of 32min of extra time was spent in addition to normal encounter time for care/coordination and counseling. D/w pt/family, RN, surgery regarding mgmt and dispo. D/w RN re nausea and anxiety mgmt Subjective Date patient seen: Dec 09, 2016 Time patient seen: 15:30 ROS Limited/Unobtainable: No Constitutional: Reports: no symptoms HEENT: Reports: no symptoms Cardiovascular: Reports: no symptoms Respiratory: Reports: no symptoms Gastrointestinal/Abdominal: Reports: no symptoms Genitourinary: Reports: no symptoms Neurologic/Psychiatric: Reports: no symptoms Endocrine: Reports: no symptoms Hematologic/Lymphatic: Reports: no symptoms Allergies: Coded Allergies: No Known Allergies (Unverified , 12/07/16) All Systems: reviewed and negative except above Subjective No acute o/n events s/p debridement of bilateral groin and chest wall tissue with flap elevation and closure of the groin wounds yesterday POD#1 Nausea improved. Pain controlled. Denies f/c, chest pain, SOB Objective Last 24 Hour Vital Signs Date Time Temp Pulse Resp B/P (MAP) Pulse Ox O2 Delivery O2 Flow Rate FiO2 12/09/16 20:05 16 12/09/16 20:00 98.6 106 18 118/78 98 Nasal Cannula 2.0 12/09/16 19:32 98.7 12/09/16 16:43 98.7 12/09/16 16:03 98.7 98 20 116/77 98 Room Air 12/09/16 16:00 18 12/09/16 12:55 86 22 98 12/09/16 12:00 20 12/09/16 11:44 98.9 98 20 120/75 97 Room Air 12/09/16 08:00 16 12/09/16 07:54 98.3 95 20 117/77 96 Room Air 12/09/16 04:00 98.3 104 18 134/90 99 Room Air 12/09/16 04:00 16 12/09/16 00:00 16 Intake and Output 12/09/16 12/10/16 19:00 07:00 Intake Total 1172.5 ml Output Total 1920 ml Balance -747.5 ml Intake Oral 460 ml IV Total 712.5 ml Output Urine Total 1900 ml Drainage Total 20 ml Height (Feet): 5 Height (Inches): 4.00 Weight (Pounds): 125 Objective General: alert, cooperative, no distress, appears stated age Head: normocephalic, without obvious abnormality, atraumatic Eyes: conjunctivae/corneas clear. PERRL, EOM's intact Throat: lips, mucosa, and tongue normal. MMM Neck: supple, symmetrical, trachea midline, and no JVD Lungs: clear to auscultation bilaterally Heart: regular rate and rhythm, S1, S2 normal, no murmur, click, rub or gallop Abdomen: soft, non-tender, non-distended, bowel sounds normal; no masses or organomegaly Extremities: extremities normal, atraumatic, no cyanosis or edema Pulses: 2+ and symmetric Neurologic: grossly normal, no focal deficits Roberta Grider M.D. Dec 09, 2016 23:13
[2016-12-10] VITALS (12 sets, daily range): BP systolic 96–121; BP diastolic 15–89
[2016-12-10] MEDS: ceFAZolin 1gm in D5W 55ml IVP SCH ×3 (05:41→22:01)
[2016-12-10] MEDS: PCA shift volume MISC SCH ×2 (07:14→19:00)
[2016-12-10] MEDS: D5 1/2NS 1,000 ML IV SCH ×2 (08:40→22:03)
[2016-12-10] MEDS: Heparin 5000 units/ml inj SUBQ SCH ×2 (09:00→22:04)
[2016-12-10] MEDS: Docusate 100mg cap ORAL SCH ×2 (09:00→22:00)
[2016-12-10] MEDS ORDERED: D5 1/2NS 1000ml IV ONE (10:42)
[2016-12-10] MEDS ORDERED: PCA Education Pamphlet MISC ONE (11:15)
--- NOTE | 2016-12-10 11:30 | Pre-Procedure Note/Attestation ---
Pre-Procedure Note/Attestation Complete Prior to Procedure Procedure Narrative: Closure of chest wall wound Indications for Procedure Pre-Operative Diagnosis: Bilateral groin and chest wall infection HS Attestation I attest that I discussed the nature of the procedure; its benefits; risks and complications; and alternatives (and the risks and benefits of such alternatives ), prior to the procedure, with the patient (or the patient's legal jewelry sales representative). I attest that, if there was a reasonable possibility of needing a blood transfusion, the patient (or the patient's legal jewelry sales representative) was given the [facility] standardized written summary, pursuant to the [place] Blood Safety Act ([place] Health and Safety Code # 1645, as amended). I attest that I re-evaluated the patient just prior to the surgery and that there has been no change in the patient's H&P, except as documented below: WARREN HOLLOWAY Dec 10, 2016 11:30
[2016-12-10] MEDS ORDERED: Naloxone 0.4mg/ml Inj IVP PRN (11:45)
[2016-12-10] MEDS ORDERED: Rate Change PCA 1 Each MISC PRN (11:45)
[2016-12-10] MEDS ORDERED: DiphenhydrAMINE 50mg/ml Inj IVP PRN ×2 (11:45→17:15)
[2016-12-10] MEDS ORDERED: TransDerm Scop 1mg/72HR Patch TDERMAL ONE ×2 (14:32→14:45)
[2016-12-10] MEDS ORDERED: Lidocaine 1% 10mg/ml/Epi 0.005mg/ml 30ml vial INJ ONE (15:46)
[2016-12-10] MEDS ORDERED: Bacitracin 50000 Units Vial ONE (15:46)
[2016-12-10] MEDS ORDERED: NeoSporin Gu Irrig 1ml Amp IRRIG ONE (15:46)
[2016-12-10] MEDS ORDERED: Ketorolac 30mg Inj ONE (16:00)
[2016-12-10] MEDS ORDERED: LR 1000ml ONE (16:00)
[2016-12-10] MEDS ORDERED: Dexamethasone 4mg/ml vial ONE (16:00)
[2016-12-10] MEDS ORDERED: fentaNYL 100 mcg/2 mL IV ONE (16:00)
[2016-12-10] MEDS ORDERED: Propofol 200mg/20ml IV ONE (16:00)
[2016-12-10] MEDS ORDERED: Midazolam 2mg/2ml Inj ONE (16:00)
[2016-12-10] MEDS ORDERED: NS Irrig 1000ml ONE (16:00)
--- NOTE | 2016-12-10 16:44 | Anethesia Preoperative Eval ---
Anesthesia Pre-op PMH/ROS General Date of Evaluation: Dec 10, 2016 Time of Evaluation: 16:50 Anesthesiologist: Laurel ASA Score: ASA 2 Mallampati Score Class I : Soft palate, uvula, fauces, pillars visible Class II: Soft palate, uvula, fauces visible Class III: Soft palate, base of uvula visible Class IV: Only hard plate visible Mallampati Classification: Class II Surgeon: Sisi Diagnosis: Recurrent HS Surgical Procedure: Central chest wound closure Anesthesia History: none Family History: no anesthesia problems Allergies: Coded Allergies: No Known Allergies (Unverified , 12/07/16) Medications: see eMAR Past Medical History Cardiovascular: Denies: HTN, CAD, MS, valve dz, arrhythmia, other Pulmonary: Denies: asthma, COPD, VIN, other Gastrointestinal/Genitourinary: Denies: GERD, CRI, ESRD, other Neurologic/Psychiatric: Reports: depression/anxiety, Denies: dementia, CVA, TIA, other Endocrine: Denies: DM, hypothyroidism, steroids, other HEENT: Denies: cataract (L), cataract (R), glaucoma, [place] (L), [place] (R), other Hematology/Immune: Denies: anemia, DVT, bleeding disorder, other Musculoskeletal/Integumentary: Denies: OA, RA, DJD, DDD, edema, other PMH Narrative: as above PSxH Narrative: See H&P Anesthesia Pre-op Phys. Exam Physician Exam Last Vital Signs Date Time Temp Pulse Resp B/P (MAP) Pulse Ox O2 Delivery O2 Flow Rate FiO2 12/10/16 12:00 98.4 80 18 118/70 99 Nasal Cannula 2.0 Constitutional: NAD Neurologic: CN 2-12 intact Cardiovascular: RRR, no M/R/G Respiratory: CTA Gastrointestinal: S/NT/ND Airway Exam Mallampati Score: Class II MO: full Neck: flexible ROM: full Teeth: intact Dentures: no upper, no lower Anesthesia Pre-op A/P Labs see chart Risk Assessment & Plan Assessment: GA with LMA Plan: ASA 2 Status Change Before Surgery: No Pre-Antibiotics Drug: Ancef 1 grMIKAYLA KOVACS M.D. Dec 10, 2016 16:44
--- NOTE | 2016-12-10 16:52 | Operative Note - PDOC ---
Operative Note Operative Note Pre-op Diagnosis: Chest wall wound Procedure: Closure of chest wall wound Surgeon: Sisi Dairy Chemist: Yoandy Anesthesia: general Specimen: yes Complications: none Condition: stable Estimated Blood Loss: minimal Drains: DENNISE Implant(s) used?: No WARREN HOLLOWAY Dec 10, 2016 16:52
[2016-12-10] MEDS ORDERED: LR 1000ml 1,000 ML IVLG SCH (17:05)
--- NOTE | 2016-12-10 17:11 | Immediate Post-Op Evaluation ---
Immediate Post-Op Evalulation Immediate Post-Op Evalulation Procedure: Closure of central chest wound Date of Evaluation: Dec 10, 2016 Time of Evaluation: 17:09 IV Fluids: 500 Blood Products: none Estimated Blood Loss: min Urinary Output: 150 Blood Pressure Systolic: 108 Blood Pressure Diastolic: 58 Pulse Rate: 89 Respiratory Rate: 22 O2 Sat by Pulse Oximetry: 99 Temperature (Fahrenheit): 97.6 Pain Score (1-10): 2 Nausea: No Vomiting: No Complications NONE Patient Status: awake, patent, none Hydration Status: adequate MIKAYLA TORRES M.D. Dec 10, 2016 17:11
[2016-12-10] MEDS ORDERED: Hydromorphone 0.5mg/0.5ml inj IVP PRN (17:15)
[2016-12-10] MEDS ORDERED: Metoclopramide 10mg/2ml Inj IVP PRN (17:15)
[2016-12-10] MEDS ORDERED: Midazolam 2mg/2ml Inj IVP PRN (17:15)
[2016-12-10] MEDS ORDERED: Ketorolac 30mg Inj IV PRN (17:15)
[2016-12-10] MEDS ORDERED: Meperidine 25mg/0.5ml Inj (FOR RIGORS ONLY) IV PRN (17:15)
[2016-12-10] MEDS: PCA HYDROmorphone 1mg/ml 30 ML IV PRN (17:45)
--- NOTE | 2016-12-10 18:13 | 48 Hour Post Anesthesia Eval ---
Post Anesthesia Evaluation Procedure: Closure of central chest wound Date of Evaluation: Dec 10, 2016 Time of Evaluation: 18:11 Blood Pressure Systolic: 108 0: 56 Pulse Rate: 72 Respiratory Rate: 22 Temperature (Fahrenheit): 97.6 O2 Sat by Pulse Oximetry: 98 Airway: patent Nausea: No Vomiting: No Pain Intensity: 3 Hydration Status: adequate Cardiopulmonary Status: stable Mental Status/LOC: patient returned to baseline Follow-up Care/Observations: n/a Post-Anesthesia Complications: none Follow-up care needed: N/A MIKAYLA TORRES M.D. Dec 10, 2016 18:13
--- NOTE | 2016-12-10 20:34 | General Progress Note ---
Assessment/Plan Problem List: (1) Abscess ICD Codes: L02.91 - Cutaneous abscess, unspecified SNOMED: 687024128 (2) Hidradenitis suppurativa ICD Codes: L73.2 - Hidradenitis suppurativa SNOMED: 25823336 (3) Postoperative nausea and vomiting ICD Codes: R11.2 - Nausea with vomiting, unspecified; Z98.890 - Other specified postprocedural states SNOMED: 3494371 Status: stable Assessment/Plan Plastic surgery consulted s/p /p debridement of bilateral groin and chest wall tissue with flap elevation and closure of the groin wounds on 12/08/16 s/p closure of chest wall wound on 12/10/16 encourage mobilization/ambulation encourage incentive spirometry to optimize pulmonary hygiene DVT/GI prophylaxis as appropriate--SCDs, HSQ F/u blood cultures x 2 IV ancef Pain control, bowel regimen Supportive care Nausea control A total of 21min of extra time was spent in addition to normal encounter time for care/coordination and counseling. D/w pt/family, RN, surgery regarding mgmt and dispo. D/w RN re nausea and anxiety mgmt Subjective Date patient seen: Dec 10, 2016 Time patient seen: 16:00 ROS Limited/Unobtainable: No Constitutional: Reports: no symptoms HEENT: Reports: no symptoms Cardiovascular: Reports: no symptoms Respiratory: Reports: no symptoms Gastrointestinal/Abdominal: Reports: nausea Genitourinary: Reports: no symptoms Neurologic/Psychiatric: Reports: no symptoms Endocrine: Reports: no symptoms Hematologic/Lymphatic: Reports: no symptoms Allergies: Coded Allergies: No Known Allergies (Unverified , 12/07/16) All Systems: reviewed and negative except above Subjective No acute o/n events s/p debridement of bilateral groin and chest wall tissue with flap elevation and closure of the groin wounds POD# s/p closure of chest wall wound today Nausea improved. Pain controlled. Denies f/c, chest pain, SOB Objective Last 24 Hour Vital Signs Date Time Temp Pulse Resp B/P (MAP) Pulse Ox O2 Delivery O2 Flow Rate FiO2 12/10/16 20:00 16 12/10/16 18:46 98.3 85 18 113/80 100 Nasal Cannula 2.0 12/10/16 18:15 97.6 12/10/16 18:13 72 22 98 12/10/16 18:09 97.6 12/10/16 18:00 15 12/10/16 17:45 97.9 90 16 118/73 100 Nasal Cannula 3.0 12/10/16 17:45 18 12/10/16 17:30 87 15 117/69 100 Nasal Cannula 3.0 12/10/16 17:15 98 19 121/89 100 Simple Mask 6.0 12/10/16 17:11 89 22 99 12/10/16 17:09 93 15 112/78 100 Simple Mask 6.0 12/10/16 17:04 91 14 96/58 100 Simple Mask 6.0 12/10/16 16:59 97.8 111 15 113/15 100 Simple Mask 6.0 12/10/16 12:00 98.4 80 18 118/70 99 Nasal Cannula 2.0 12/10/16 12:00 18 12/10/16 10:18 98.9 12/10/16 08:00 18 12/10/16 08:00 98.9 85 16 108/66 100 Nasal Cannula 2.0 12/10/16 04:00 98.5 87 18 108/64 99 Nasal Cannula 2.0 12/10/16 04:00 16 12/10/16 00:00 98.7 94 18 109/68 100 Nasal Cannula 2.0 12/10/16 00:00 16 Intake and Output 12/10/16 12/11/16 19:00 07:00 Intake Total 400 ml Output Total 100 ml 13 ml Balance 300 ml -13 ml IV Total 400 ml Output Urine Total 100 ml Drainage Total 13 ml Height (Feet): 5 Height (Inches): 3.00 Weight (Pounds): 124 Objective General: alert, cooperative, no distress, appears stated age Head: normocephalic, without obvious abnormality, atraumatic Eyes: conjunctivae/corneas clear. PERRL, EOM's intact Throat: lips, mucosa, and tongue normal. MMM Neck: supple, symmetrical, trachea midline, and no JVD Lungs: clear to auscultation bilaterally Heart: regular rate and rhythm, S1, S2 normal, no murmur, click, rub or gallop Abdomen: soft, non-tender, non-distended, bowel sounds normal; no masses or organomegaly Extremities: extremities normal, atraumatic, no cyanosis or edema Pulses: 2+ and symmetric Neurologic: grossly normal, no focal deficits Roberta Grider M.D. Dec 10, 2016 20:34
[2016-12-11] VITALS: BP 107/60
--- NOTE | 2016-12-11 01:00 | Operative Note - Dictated ---
DATE OF OPERATION: 12/10/2016 PREOPERATIVE DIAGNOSIS: Open central chest wound. POSTOPERATIVE DIAGNOSIS: Open central chest wound. PROCEDURES: 1. Preparation of central chest wound for flap closure. 2. Elevation of a right-sided fasciocutaneous chest wall flap for closure of chest wall wound. 3. Elevation of a left-sided fasciocutaneous chest wall flap for closure of central chest wound. SURGEON: Wilmer Laird M.D. JOINT SEALER: Andrea Pitt M.D. ANESTHESIA: General. DRAINS: Included a single size #10 Nikunj-Davidson drain. DISPOSITION: Stable to the recovery room. Indications For Surgery: This is a 21-year-old female, who is now 48 hours status post radical excision of a central chest wall infection, who has been treated with wet-to-dry dressings and on IV antibiotics and is now prepared to undergo definitive closure of her wound. Her wound measured approximately 8 x 5 cm and was not amenable to primary closure. As such, she was consented to undergo a flap closure of her wounds. She understood the risks and benefits of surgery and agreed to proceed. Details Of The Operation: The patient was brought to the operating room and laid in the supine position on the operating room table. The chest was prepped and draped in a sterile and usual fashion. The wound was debrided of its nonviable tissue. Hemostasis was achieved after pulse lavage irrigation. Once this was done, we first raised the right-sided chest wall flap based off of perforators of the internal mammary artery by releasing the tissue just above the level of the pectoralis fascia and fully mobilizing the flap with proximal and distal incisions. This was noted to allow for some advancement of the flap, but still was insufficient to close the wound completely without tension. As such, a contralateral left-sided chest wall flap was elevated off of the pectoralis fascia with proximal and distal incisions made to fully mobilize this flap with perforators off of the internal mammary artery also perfusing this flap. Once this was done, a DENNISE drain was set in place and secured with a 3-0 nylon suture and the flaps were brought together in opposition using a layered closure of #0 and 2-0 Vicryl sutures as well as a 3-0 Monocryl to close the skin. Given the patient's large breast size, I was concerned that there would be significant pull on the incision. As such, I added a fourth layer of skin closure using Prolene interrupted sutures to reinforce the closure. The chest was then wrapped with a compressive dressing. The patient tolerated the procedure well. There were no complications. Wilmer Laird M.D. DR: TWIN JOB#: [id number] CC:
[2016-12-11 04:00] VITALS: BP 103/69
[2016-12-11] MEDS: ceFAZolin 1gm in D5W 55ml IVP SCH ×3 (06:08→21:54)
[2016-12-11 07:00] LABS: ANION GAP 10 (5-15); CARBON DIOXIDE 27 mEQ/L (20-30); CHLORIDE 102 mEQ/L (98-107); CREATININE 0.5 mg/dL (0.5-0.9); GLOMERULAR FILTRATION RATE > 60 mL/min (>60); HEMOLYSIS 0; POTASSIUM 3.9 mEQ/L (3.4-4.9); SODIUM 139 mEQ/L (135-145)
[2016-12-11] MEDS: PCA shift volume MISC SCH ×2 (07:00→19:00)
[2016-12-11 07:06] LABS: BASOPHILS % (AUTO) 0.3 % (0.0-2.0); LYMPHOCYTES % (AUTO) 11.2 % (20.0-45.0); MEAN CORPUSCULAR HEMOGLOBIN 31.6 PG (27.0-31.0); MEAN CORPUSCULAR HGB CONC 35.4 G/DL (32.0-36.0); MEAN CORPUSCULAR VOLUME 89 FL (80-99); MEAN PLATELET VOLUME 7.7 FL (6.5-10.1); MONOCYTES % (AUTO) 5.5 % (1.0-10.0); PLATELET COUNT 249 K/UL (150-450); RED BLOOD COUNT 3.83 M/UL (4.20-5.40); RED CELL DISTRIBUTION WIDTH 10.6 % (11.6-14.8); WHITE BLOOD COUNT 5.2 K/UL (4.8-10.8)
--- NOTE | 2016-12-11 07:51 | General Progress Note ---
Assessment/Plan Problem List: (1) Abscess ICD Codes: L02.91 - Cutaneous abscess, unspecified SNOMED: 633418828 (2) Hidradenitis suppurativa ICD Codes: L73.2 - Hidradenitis suppurativa SNOMED: 97036319 (3) Postoperative nausea and vomiting ICD Codes: R11.2 - Nausea with vomiting, unspecified; Z98.890 - Other specified postprocedural states SNOMED: 7328867 (4) UTI (urinary tract infection) Assessment & Plan: 2/2 staph aureus ICD Codes: N39.0 - Urinary tract infection, site not specified SNOMED: 18862198 Status: stable Assessment/Plan Plastic surgery consulted s/p debridement of bilateral groin and chest wall tissue with flap elevation and closure of the groin wounds on 12/08/16 s/p closure of chest wall wound on 12/10/16 encourage mobilization/ambulation encourage incentive spirometry to optimize pulmonary hygiene DVT/GI prophylaxis as appropriate--SCDs, HSQ F/u blood cultures x 2 IV ancef Pain control, bowel regimen Supportive care Nausea control A total of 21min of extra time was spent in addition to normal encounter time for care/coordination and counseling. D/w pt/family, RN, surgery regarding mgmt and dispo. D/w RN re nausea and anxiety mgmt Subjective Date patient seen: Dec 11, 2016 Time patient seen: 08:00 ROS Limited/Unobtainable: No Allergies: Coded Allergies: No Known Allergies (Unverified , 12/07/16) Subjective No acute o/n events s/p debridement of bilateral groin and chest wall tissue with flap elevation and closure of the groin wounds POD#3 s/p closure of chest wall wound yesterday POD#1 Nausea improved. Pain controlled. Denies f/c, chest pain, SOB Objective Last 24 Hour Vital Signs Date Time Temp Pulse Resp B/P (MAP) Pulse Ox O2 Delivery O2 Flow Rate FiO2 12/11/16 04:00 97.8 67 17 103/69 100 Nasal Cannula 3.0 12/11/16 04:00 18 12/11/16 00:00 98.0 80 17 107/60 96 Nasal Cannula 3.0 12/11/16 00:00 17 12/10/16 20:00 16 12/10/16 20:00 98.2 82 17 114/68 99 Nasal Cannula 3.0 12/10/16 18:46 98.3 85 18 113/80 100 Nasal Cannula 2.0 12/10/16 18:15 97.6 12/10/16 18:13 72 22 98 12/10/16 18:09 97.6 12/10/16 18:00 15 12/10/16 17:45 97.9 90 16 118/73 100 Nasal Cannula 3.0 12/10/16 17:45 18 12/10/16 17:30 87 15 117/69 100 Nasal Cannula 3.0 12/10/16 17:15 98 19 121/89 100 Simple Mask 6.0 12/10/16 17:11 89 22 99 12/10/16 17:09 93 15 112/78 100 Simple Mask 6.0 12/10/16 17:04 91 14 96/58 100 Simple Mask 6.0 12/10/16 16:59 97.8 111 15 113/15 100 Simple Mask 6.0 12/10/16 12:00 98.4 80 18 118/70 99 Nasal Cannula 2.0 12/10/16 12:00 18 12/10/16 10:18 98.9 12/10/16 08:00 18 12/10/16 08:00 98.9 85 16 108/66 100 Nasal Cannula 2.0 Laboratory Tests 12/11/16 04:35: White Blood Count 5.2, Red Blood Count 3.83L, Hemoglobin 12.1, Hematocrit 34.2L , Mean Corpuscular Volume 89, Mean Corpuscular Hemoglobin 31.6H, Mean Corpuscular Hemoglobin Concent 35.4, Red Cell Distribution Width 10.6L, Platelet Count 249, Mean Platelet Volume 7.7, Neutrophils (%) (Auto) 83.0H, Lymphocytes (%) (Auto) 11.2L, Monocytes (%) (Auto) 5.5, Eosinophils (%) (Auto) 0.0, Basophils (%) (Auto) 0.3, Sodium Level 139, Potassium Level 3.9, Chloride Level 102, Carbon Dioxide Level 27, Anion Gap 10, Blood Urea Nitrogen 3L, Creatinine 0.5, Estimat Glomerular Filtration Rate > 60, Glucose Level 189H, Calcium Level 9.0 Height (Feet): 5 Height (Inches): 3.00 Weight (Pounds): 124 Objective General: alert, cooperative, no distress, appears stated age Head: normocephalic, without obvious abnormality, atraumatic Eyes: conjunctivae/corneas clear. PERRL, EOM's intact Throat: lips, mucosa, and tongue normal. MMM Neck: supple, symmetrical, trachea midline, and no JVD Lungs: clear to auscultation bilaterally Heart: regular rate and rhythm, S1, S2 normal, no murmur, click, rub or gallop Abdomen: soft, non-tender, non-distended, bowel sounds normal; no masses or organomegaly Extremities: extremities normal, atraumatic, no cyanosis or edema Pulses: 2+ and symmetric Neurologic: grossly normal, no focal deficits Roberta Grider M.D. Dec 11, 2016 07:51
[2016-12-11 08:00] VITALS: BP 109/61
[2016-12-11] MEDS: Docusate 100mg cap ORAL SCH ×2 (09:40→21:00)
[2016-12-11] MEDS: D5 1/2NS 1,000 ML IV SCH (09:41)
[2016-12-11] MEDS: Heparin 5000 units/ml inj SUBQ SCH ×2 (09:42→21:00)
--- NOTE | 2016-12-11 11:17 | General Progress Note ---
Progress Note Progress Note Pt seen and examined. Doing well. Groin dressings removed and wounds look good. Continue [employer]TER and IV abx. WARREN Carl MD Dec 11, 2016 11:17
[2016-12-11 12:00] VITALS: BP 108/65
[2016-12-11 16:00] VITALS: BP 125/82
[2016-12-11] MEDS: PCA HYDROmorphone 1mg/ml 30 ML IV PRN (17:35)
[2016-12-11] MEDS ORDERED: Tubing IV Secondary IV ONE (17:43)
[2016-12-11] MEDS ORDERED: NS 275ml ONE (17:43)
[2016-12-11] MEDS ORDERED: D5 1/2NS 1000ml IV ONE (17:43)
[2016-12-11] MEDS ORDERED: LORazepam 0.5mg tab ORAL PRN (19:00)
[2016-12-11 20:00] VITALS: BP 109/59
[2016-12-12] VITALS: BP 99/52
[2016-12-12] MEDS: D5 1/2NS 1,000 ML IV SCH ×2 (00:15→13:26)
[2016-12-12 04:00] VITALS: BP 108/60
[2016-12-12] MEDS: ceFAZolin 1gm in D5W 55ml IVP SCH ×3 (05:57→20:48)
[2016-12-12] MEDS: PCA shift volume MISC SCH ×2 (07:00→19:14)
[2016-12-12 08:00] VITALS: BP 112/76
[2016-12-12] MEDS: Docusate 100mg cap ORAL SCH ×2 (09:11→20:44)
[2016-12-12] MEDS: Heparin 5000 units/ml inj SUBQ SCH ×2 (09:13→20:46)
[2016-12-12] MEDS ORDERED: D5 1/2NS 1000ml IV ONE (09:24)
[2016-12-12] MEDS ORDERED: Naloxone 0.4mg/ml Inj IVP PRN (09:50)
[2016-12-12] MEDS ORDERED: Rate Change PCA 1 Each MISC PRN (10:00)
[2016-12-12] MEDS ORDERED: PCA HYDROmorphone 1mg/ml 30 ML IV PRN (10:30)
[2016-12-12] MEDS ORDERED: DiphenhydrAMINE 50mg/ml Inj IVP PRN (11:45)
[2016-12-12 12:00] VITALS: BP 110/72
[2016-12-12 16:00] VITALS: BP 123/78
[2016-12-12 20:00] VITALS: BP 122/79
[2016-12-13] MEDS: D5 1/2NS 1,000 ML IV SCH ×2 (02:35→16:04)
[2016-12-13 04:00] VITALS: BP 114/68
[2016-12-13] MEDS: ceFAZolin 1gm in D5W 55ml IVP SCH ×3 (05:05→21:13)
[2016-12-13] MEDS: PCA shift volume MISC SCH ×2 (07:04→19:27)
[2016-12-13 08:00] VITALS: BP 117/64
[2016-12-13] MEDS: Docusate 100mg cap ORAL SCH ×2 (08:40→20:02)
[2016-12-13] MEDS: Heparin 5000 units/ml inj SUBQ SCH ×2 (08:44→20:03)
--- NOTE | 2016-12-13 09:04 | General Progress Note ---
Assessment/Plan Problem List: (1) Abscess ICD Codes: L02.91 - Cutaneous abscess, unspecified SNOMED: 903654419 (2) Hidradenitis suppurativa ICD Codes: L73.2 - Hidradenitis suppurativa SNOMED: 00979707 (3) Postoperative nausea and vomiting ICD Codes: R11.2 - Nausea with vomiting, unspecified; Z98.890 - Other specified postprocedural states SNOMED: 9469284 (4) UTI (urinary tract infection) Assessment & Plan: 2/ staph aureus ICD Codes: N39.0 - Urinary tract infection, site not specified SNOMED: 66025850 Status: stable Assessment/Plan Plastic surgery consulted s/p debridement of bilateral groin and chest wall tissue with flap elevation and closure of the groin wounds on 12/08/16 s/p closure of chest wall wound on 12/10/16 encourage mobilization/ambulation encourage incentive spirometry to optimize pulmonary hygiene DVT/GI prophylaxis as appropriate--SCDs, HSQ F/u blood cultures x 2 IV ancef Pain control, bowel regimen Supportive care Nausea control A total of 32min of extra time was spent in addition to normal encounter time for care/coordination and counseling. D/w pt/family, RN, surgery regarding mgmt and dispo. D/w RN re nausea and anxiety mgmt Subjective Date patient seen: Dec 12, 2016 Time patient seen: 12:00 ROS Limited/Unobtainable: No Constitutional: Reports: no symptoms HEENT: Reports: no symptoms Cardiovascular: Reports: no symptoms Respiratory: Reports: no symptoms Gastrointestinal/Abdominal: Reports: no symptoms Genitourinary: Reports: no symptoms Neurologic/Psychiatric: Reports: no symptoms Endocrine: Reports: no symptoms Hematologic/Lymphatic: Reports: no symptoms Allergies: Coded Allergies: No Known Allergies (Unverified , 12/07/16) All Systems: reviewed and negative except above Subjective No acute o/n events s/p debridement of bilateral groin and chest wall tissue with flap elevation and closure of the groin wounds POD#4 s/p closure of chest wall wound yesterday POD#2 Nausea improved. Pain controlled. Denies f/c, chest pain, SOB Objective Last 24 Hour Vital Signs Date Time Temp Pulse Resp B/P (MAP) Pulse Ox O2 Delivery O2 Flow Rate FiO2 12/13/16 08:00 98.4 99 18 117/64 98 Room Air 12/13/16 08:00 18 12/13/16 04:00 99.3 87 18 114/68 97 Room Air 12/13/16 04:00 18 12/13/16 00:00 18 12/12/16 20:00 18 12/12/16 20:00 98.4 105 18 122/79 98 Room Air 12/12/16 16:00 98.1 92 20 123/78 95 Nasal Cannula 1.0 12/12/16 16:00 18 12/12/16 12:00 18 12/12/16 12:00 99.6 92 18 110/72 98 Nasal Cannula 1.0 Height (Feet): 5 Height (Inches): 3.00 Weight (Pounds): 124 Objective General: alert, cooperative, no distress, appears stated age Head: normocephalic, without obvious abnormality, atraumatic Eyes: conjunctivae/corneas clear. PERRL, EOM's intact Throat: lips, mucosa, and tongue normal. MMM Neck: supple, symmetrical, trachea midline, and no JVD Lungs: clear to auscultation bilaterally Heart: regular rate and rhythm, S1, S2 normal, no murmur, click, rub or gallop Abdomen: soft, non-tender, non-distended, bowel sounds normal; no masses or organomegaly Extremities: extremities normal, atraumatic, no cyanosis or edema Pulses: 2+ and symmetric Neurologic: grossly normal, no focal deficits Roberta Grider M.D. Dec 13, 2016 09:04
--- NOTE | 2016-12-13 09:45 | General Progress Note ---
Progress Note Progress Note Pt seen and examined. Doing well and pain controlled. Groin wounds look very healthy. Will take down chest dressing tomorrow. WARREN Carl MD Dec 13, 2016 09:45
[2016-12-13 12:00] VITALS: BP 119/72
--- NOTE | 2016-12-13 14:33 | General Progress Note ---
Assessment/Plan Problem List: (1) Abscess ICD Codes: L02.91 - Cutaneous abscess, unspecified SNOMED: 965908403 (2) Hidradenitis suppurativa ICD Codes: L73.2 - Hidradenitis suppurativa SNOMED: 99681170 (3) Postoperative nausea and vomiting ICD Codes: R11.2 - Nausea with vomiting, unspecified; Z98.890 - Other specified postprocedural states SNOMED: 0767192 (4) UTI (urinary tract infection) Assessment & Plan: 2/ staph aureus ICD Codes: N39.0 - Urinary tract infection, site not specified SNOMED: 32828128 Status: stable Assessment/Plan Plastic surgery consulted s/p debridement of bilateral groin and chest wall tissue with flap elevation and closure of the groin wounds on 12/08/16 s/p closure of chest wall wound on 12/10/16 encourage mobilization/ambulation encourage incentive spirometry to optimize pulmonary hygiene DVT/GI prophylaxis as appropriate--SCDs, HSQ F/u blood cultures x 2 IV ancef Pain control, bowel regimen Supportive care Nausea control A total of 31min of extra time was spent in addition to normal encounter time for care/coordination and counseling. D/w pt/family, RN, surgery regarding mgmt and dispo. D/w Dr. Sisi woodard wound care and plan for d/c Subjective Date patient seen: Dec 13, 2016 Time patient seen: 13:00 ROS Limited/Unobtainable: No Constitutional: Reports: no symptoms HEENT: Reports: no symptoms Cardiovascular: Reports: no symptoms Respiratory: Reports: no symptoms Gastrointestinal/Abdominal: Reports: no symptoms Genitourinary: Reports: no symptoms Neurologic/Psychiatric: Reports: no symptoms Endocrine: Reports: no symptoms Hematologic/Lymphatic: Reports: no symptoms Allergies: Coded Allergies: No Known Allergies (Unverified , 12/07/16) All Systems: reviewed and negative except above Subjective No acute o/n events s/p debridement of bilateral groin and chest wall tissue with flap elevation and closure of the groin wounds POD#5 s/p closure of chest wall wound yesterday POD#3 Roberts removed and voiding on own Pain controlled. Denies f/c, n/v, d/c, chest pain, SOB Passing gas, no BM yet Objective Last 24 Hour Vital Signs Date Time Temp Pulse Resp B/P (MAP) Pulse Ox O2 Delivery O2 Flow Rate FiO2 12/13/16 12:46 98.4 12/13/16 12:00 98.4 84 18 119/72 98 Room Air 12/13/16 12:00 18 12/13/16 08:00 98.4 99 18 117/64 98 Room Air 12/13/16 08:00 18 12/13/16 04:00 99.3 87 18 114/68 97 Room Air 12/13/16 04:00 18 12/13/16 00:00 18 12/12/16 20:00 18 12/12/16 20:00 98.4 105 18 122/79 98 Room Air 12/12/16 16:00 98.1 92 20 123/78 95 Nasal Cannula 1.0 12/12/16 16:00 18 Intake and Output 12/13/16 12/14/16 19:00 07:00 Intake Total 480 ml Balance 480 ml Intake Oral 480 ml Height (Feet): 5 Height (Inches): 3.00 Weight (Pounds): 124 Objective General: alert, cooperative, no distress, appears stated age Head: normocephalic, without obvious abnormality, atraumatic Eyes: conjunctivae/corneas clear. PERRL, EOM's intact Throat: lips, mucosa, and tongue normal. MMM Neck: supple, symmetrical, trachea midline, and no JVD Lungs: clear to auscultation bilaterally Heart: regular rate and rhythm, S1, S2 normal, no murmur, click, rub or gallop Abdomen: soft, non-tender, non-distended, bowel sounds normal; no masses or organomegaly Extremities: extremities normal, atraumatic, no cyanosis or edema Pulses: 2+ and symmetric Neurologic: grossly normal, no focal deficits Roberta Grider M.D. Dec 13, 2016 14:33
[2016-12-13 16:00] VITALS: BP 118/79
[2016-12-13 20:00] VITALS: BP 126/75
[2016-12-14] VITALS: BP 109/69
[2016-12-14 04:00] VITALS: BP 114/64
[2016-12-14] MEDS: ceFAZolin 1gm in D5W 55ml IVP SCH ×3 (06:20→21:01)
[2016-12-14] MEDS: PCA shift volume MISC SCH ×2 (07:00→19:02)
[2016-12-14 07:49] LABS: BASOPHILS % (AUTO) 0.7 % (0.0-2.0); EOSINOPHILS % (AUTO) 1.7 % (0.0-3.0); LYMPHOCYTES % (AUTO) 35.9 % (20.0-45.0); MEAN CORPUSCULAR HEMOGLOBIN 30.2 PG (27.0-31.0); MEAN CORPUSCULAR HGB CONC 33.9 G/DL (32.0-36.0); MEAN CORPUSCULAR VOLUME 89 FL (80-99); MEAN PLATELET VOLUME 7.1 FL (6.5-10.1); MONOCYTES % (AUTO) 7.3 % (1.0-10.0); NEUTROPHILS % (AUTO) 54.5 % (45.0-75.0); PLATELET COUNT 244 K/UL (150-450); RED CELL DISTRIBUTION WIDTH 10.9 % (11.6-14.8); WHITE BLOOD COUNT 5.5 K/UL (4.8-10.8)
[2016-12-14 08:00] VITALS: BP 109/76
[2016-12-14] MEDS: Docusate 100mg cap ORAL SCH ×2 (08:24→20:56)
[2016-12-14] MEDS: Heparin 5000 units/ml inj SUBQ SCH ×2 (08:27→20:59)
[2016-12-14] MEDS ORDERED: Rate Change PCA 1 Each MISC PRN (11:00)
[2016-12-14] MEDS ORDERED: Naloxone 0.4mg/ml Inj IVP PRN (11:00)
[2016-12-14 11:33] VITALS: BP 126/80
[2016-12-14] MEDS: PCA HYDROmorphone 1mg/ml 30 ML IV PRN (12:02)
[2016-12-14 15:58] VITALS: BP 113/77
--- NOTE | 2016-12-14 16:59 | General Progress Note ---
Assessment/Plan Problem List: (1) Abscess ICD Codes: L02.91 - Cutaneous abscess, unspecified SNOMED: 605714968 (2) Hidradenitis suppurativa ICD Codes: L73.2 - Hidradenitis suppurativa SNOMED: 97412358 (3) Postoperative nausea and vomiting ICD Codes: R11.2 - Nausea with vomiting, unspecified; Z98.890 - Other specified postprocedural states SNOMED: 6664412 (4) UTI (urinary tract infection) Assessment & Plan: 2/ staph aureus ICD Codes: N39.0 - Urinary tract infection, site not specified SNOMED: 60483851 Status: stable Assessment/Plan Plastic surgery consulted s/p debridement of bilateral groin and chest wall tissue with flap elevation and closure of the groin wounds on 12/08/16 s/p closure of chest wall wound on 12/10/16 encourage mobilization/ambulation encourage incentive spirometry to optimize pulmonary hygiene DVT/GI prophylaxis as appropriate--SCDs, HSQ F/u blood cultures x 2 IV ancef Pain control, bowel regimen Supportive care Nausea control A total of 31min of extra time was spent in addition to normal encounter time for care/coordination and counseling. D/w pt/family, RN, surgery regarding mgmt and dispo. D/w Dr. Sisi woodard wound care and plan for d/c Subjective Date patient seen: Dec 14, 2016 Time patient seen: 16:59 ROS Limited/Unobtainable: No Constitutional: Reports: no symptoms HEENT: Reports: no symptoms Cardiovascular: Reports: no symptoms Respiratory: Reports: no symptoms Gastrointestinal/Abdominal: Reports: no symptoms Genitourinary: Reports: no symptoms Neurologic/Psychiatric: Reports: no symptoms Endocrine: Reports: no symptoms Hematologic/Lymphatic: Reports: no symptoms Allergies: Coded Allergies: No Known Allergies (Unverified , 12/07/16) All Systems: reviewed and negative except above Subjective No acute o/n events s/p debridement of bilateral groin and chest wall tissue with flap elevation and closure of the groin wounds POD#6 s/p closure of chest wall wound yesterday POD#4 Roberts removed and voiding on own Pain controlled. Denies f/c, n/v, d/c, chest pain, SOB Passing gas, no BM yet Objective Last 24 Hour Vital Signs Date Time Temp Pulse Resp B/P (MAP) Pulse Ox O2 Delivery O2 Flow Rate FiO2 12/14/16 15:58 98.0 94 18 113/77 100 Room Air 12/14/16 15:46 16 12/14/16 12:00 18 12/14/16 11:33 99.3 101 18 126/80 99 Room Air 12/14/16 08:00 15 12/14/16 08:00 98.5 87 20 109/76 99 Room Air 12/14/16 04:00 97.6 74 16 114/64 97 Room Air 12/14/16 04:00 17 12/14/16 00:00 97.9 74 17 109/69 97 Room Air 12/14/16 00:00 16 12/13/16 20:00 17 12/13/16 20:00 97.7 87 16 126/75 98 Room Air Intake and Output 12/14/16 12/15/16 19:00 07:00 Intake Total 740 ml Balance 740 ml Intake Oral 740 ml # Voids 4 Laboratory Tests 12/14/16 06:37: White Blood Count 5.5, Red Blood Count 3.90L, Hemoglobin 11.8L, Hematocrit 34.7L , Mean Corpuscular Volume 89, Mean Corpuscular Hemoglobin 30.2, Mean Corpuscular Hemoglobin Concent 33.9, Red Cell Distribution Width 10.9L, Platelet Count 244, Mean Platelet Volume 7.1, Neutrophils (%) (Auto) 54.5, Lymphocytes (%) (Auto) 35.9, Monocytes (%) (Auto) 7.3, Eosinophils (%) (Auto) 1.7, Basophils (%) (Auto) 0.7 Height (Feet): 5 Height (Inches): 3.00 Weight (Pounds): 124 Objective General: alert, cooperative, no distress, appears stated age Head: normocephalic, without obvious abnormality, atraumatic Eyes: conjunctivae/corneas clear. PERRL, EOM's intact Throat: lips, mucosa, and tongue normal. MMM Neck: supple, symmetrical, trachea midline, and no JVD Lungs: clear to auscultation bilaterally Heart: regular rate and rhythm, S1, S2 normal, no murmur, click, rub or gallop Abdomen: soft, non-tender, non-distended, bowel sounds normal; no masses or organomegaly Extremities: extremities normal, atraumatic, no cyanosis or edema Pulses: 2+ and symmetric Neurologic: grossly normal, no focal deficits Roberta Grider M.D. Dec 14, 2016 16:59
[2016-12-14] MEDS ORDERED: Zolpidem 5mg tab ORAL PRN (19:00)
[2016-12-14] MEDS ORDERED: PCA shift volume MISC SCH (19:00)
[2016-12-14 20:00] VITALS: BP 117/78
[2016-12-15] VITALS: BP 120/79
[2016-12-15 04:00] VITALS: BP 125/77
[2016-12-15] MEDS: ceFAZolin 1gm in D5W 55ml IVP SCH ×3 (05:59→22:29)
[2016-12-15] MEDS: PCA shift volume MISC SCH (07:03)
[2016-12-15] MEDS: Docusate 100mg cap ORAL SCH ×2 (08:09→22:29)
[2016-12-15] MEDS: Heparin 5000 units/ml inj SUBQ SCH ×2 (08:13→22:31)
[2016-12-15 08:14] VITALS: BP 127/91
[2016-12-15 12:00] VITALS: BP 101/77
[2016-12-15] MEDS: PCA HYDROmorphone 1mg/ml 30 ML IV PRN (12:05)
--- NOTE | 2016-12-15 14:00 | General Progress Note ---
Assessment/Plan Problem List: (1) Abscess ICD Codes: L02.91 - Cutaneous abscess, unspecified SNOMED: 944732196 (2) Hidradenitis suppurativa ICD Codes: L73.2 - Hidradenitis suppurativa SNOMED: 01048918 (3) Postoperative nausea and vomiting ICD Codes: R11.2 - Nausea with vomiting, unspecified; Z98.890 - Other specified postprocedural states SNOMED: 0991395 (4) UTI (urinary tract infection) Assessment & Plan: 2/ staph aureus ICD Codes: N39.0 - Urinary tract infection, site not specified SNOMED: 12191444 Status: stable Assessment/Plan Plastic surgery consulted s/p debridement of bilateral groin and chest wall tissue with flap elevation and closure of the groin wounds on 12/08/16 s/p closure of chest wall wound on 12/10/16 encourage mobilization/ambulation encourage incentive spirometry to optimize pulmonary hygiene DVT/GI prophylaxis as appropriate--SCDs, HSQ F/u blood cultures x 2 IV ancef Pain control, bowel regimen Supportive care Nausea control Home health ordered DC planning for tomorrow A total of 32min of extra time was spent in addition to normal encounter time for care/coordination and counseling. D/w pt/family, RN, surgery regarding mgmt and dispo. D/w Dr. Sisi woodard wound care and plan for d/c Subjective Date patient seen: Dec 15, 2016 Time patient seen: 14:00 Constitutional: Reports: no symptoms HEENT: Reports: no symptoms Cardiovascular: Reports: no symptoms Respiratory: Reports: no symptoms Gastrointestinal/Abdominal: Reports: no symptoms Genitourinary: Reports: no symptoms Neurologic/Psychiatric: Reports: no symptoms Endocrine: Reports: no symptoms Hematologic/Lymphatic: Reports: no symptoms Allergies: Coded Allergies: No Known Allergies (Unverified , 12/07/16) All Systems: reviewed and negative except above Subjective No acute o/n events s/p debridement of bilateral groin and chest wall tissue with flap elevation and closure of the groin wounds POD#7 s/p closure of chest wall wound yesterday POD#5 Roberts removed and voiding on own Pain controlled. Denies f/c, n/v, d/c, chest pain, SOB Passing gas, no BM yet Objective Last 24 Hour Vital Signs Date Time Temp Pulse Resp B/P (MAP) Pulse Ox O2 Delivery O2 Flow Rate FiO2 12/15/16 12:00 99.0 95 20 101/77 97 Room Air 12/15/16 08:14 98.6 93 18 127/91 98 Room Air 12/15/16 08:03 18 12/15/16 04:00 18 12/15/16 04:00 98.5 82 18 125/77 99 Room Air 12/15/16 00:00 98.6 76 18 120/79 96 Room Air 12/15/16 00:00 18 12/14/16 20:00 18 12/14/16 20:00 99.3 91 18 117/78 96 Room Air 12/14/16 15:58 98.0 94 18 113/77 100 Room Air 12/14/16 15:46 16 Height (Feet): 5 Height (Inches): 3.00 Weight (Pounds): 124 Objective General: alert, cooperative, no distress, appears stated age Head: normocephalic, without obvious abnormality, atraumatic Eyes: conjunctivae/corneas clear. PERRL, EOM's intact Throat: lips, mucosa, and tongue normal. MMM Neck: supple, symmetrical, trachea midline, and no JVD Lungs: clear to auscultation bilaterally Heart: regular rate and rhythm, S1, S2 normal, no murmur, click, rub or gallop Abdomen: soft, non-tender, non-distended, bowel sounds normal; no masses or organomegaly Extremities: extremities normal, atraumatic, no cyanosis or edema Pulses: 2+ and symmetric Neurologic: grossly normal, no focal deficits Roberta Grider M.D. Dec 15, 2016 14:00
[2016-12-15] MEDS ORDERED: KEFLEX500 MG ORAL (14:04)
[2016-12-15] MEDS ORDERED: HYDROCODON-ACE1 EA13 ORAL (14:05)
[2016-12-15] MEDS: Norco 10mg/325mg tab ORAL PRN ×2 (15:35→23:54)
[2016-12-15 16:00] VITALS: BP 124/78
[2016-12-15] MEDS ORDERED: NS 275ml ONE (18:42)
[2016-12-15] MEDS ORDERED: Tubing IV Blood Pump IV ONE (18:42)
[2016-12-15] MEDS ORDERED: D5 1/2NS 1000ml IV ONE (18:42)
[2016-12-15] MEDS ORDERED: NS Irrig 1000ml ONE (18:42)
[2016-12-15 20:00] VITALS: BP 127/84
[2016-12-16] VITALS: BP 110/67
[2016-12-16 04:00] VITALS: BP 109/62
[2016-12-16] MEDS: ceFAZolin 1gm in D5W 55ml IVP SCH ×2 (04:23→14:00)
[2016-12-16] MEDS: Norco 10mg/325mg tab ORAL PRN ×2 (04:35→08:58)
[2016-12-16 08:23] VITALS: BP 114/74
[2016-12-16] MEDS: Docusate 100mg cap ORAL SCH (08:59)
[2016-12-16] MEDS: Heparin 5000 units/ml inj SUBQ SCH (08:59)
[2016-12-16 11:23] VITALS: BP 120/77
--- NOTE | 2016-12-17 11:28 | Discharge Summary ---
Discharge Summary Hospital Course Date of Admission Dec 07, 2016 at 13:32 Date of Discharge Dec 16, 2016 at 15:00 Admitting Diagnosis hidradenitis/cellulitis HPI Azra Reyna is a 21 year old female who was admitted on Dec 07, 2016 at 13:32 for Hidradenitis,Cellulitis Hospital Course [id number] Discharge Discharge Disposition Patient was discharged to Home (01) Discharge Diagnoses: Alicia Galo NP Dec 17, 2016 11:28
--- NOTE | 2016-12-18 05:15 | Discharge Summary 2 SIG ---
DATE OF ADMISSION: 12/07/2016 DATE OF DISCHARGE: 12/16/2016 SURGEON: Wilmer Laird M.D. Brief Hospital Course: The patient is a 21-year-old female with past medical history of hydradenitis suppurativa, presented with worsening pain, swelling, redness and drainage on the site. The patient had infection on and off for many years, which had been treated several times with oral antibiotics, however, symptoms recurred. She had infections in the inguinal regions and between the breasts and symptoms are worsening. She was admitted for abscess and hidradenitis suppurativa and had plastic surgery evaluation. She was started on IV antibiotics Ancef. The patient would require radical excision of the affected areas in the groin and chest with reconstruction. The patient will need to undergo staged surgery. She underwent debridement of bilateral groin and chest wall tissue with flap elevation and closure of the groin on 12/08/2016 and on 12/10/2016 underwent closure of chest wall wound. Postoperatively, she was given pain management and incentive spirometry to optimize pulmonary hygiene. She was encouraged mobilization and ambulation and was given SCDs and heparin subcutaneous for DVT prophylaxis. She was given pain control and bowel regimen. She had episodes of nausea and was given Zofran. Blood cultures did not isolate any growth. Urine culture showed growth of Staphylococcus aureus. Groin wounds and chest were stable. She was eventually discharged home. Advised to follow up as outpatient. FINAL DIAGNOSES: 1. Abscess. 2. Hidradenitis suppurativa. 3. Postoperative nausea and vomiting. 4. Urinary tract infection with Staphylococcus aureus. 5. Radical excision of infected tissues with reconstruction. DISPOSITION: The patient was discharged home. Discharge Medications: Refer to medication list. Continue Keflex for seven more days. FOLLOWUP: Follow up as outpatient. Roberta Grider M.D. I have been assigned to dictate discharge summary on this account and I was not involved in the patient's management. Alicia Galo N.P. DR: MEGAN JOB#: [id number] CC: EILEEN
--- NOTE | 2016-12-21 22:40 | Discharge Summary ---
Discharge Summary Hospital Course Date of Admission Dec 07, 2016 at 13:32 Date of Discharge Dec 16, 2016 at 15:00 Admitting Diagnosis abscess, cellulitis Reason for Hospitalization: abscess, cellulitis HPI 21y/o female with pmh of hidradenitis suppurativa presenting with worsening pain /swelling/redness/drainages. She states that she has had this infection on and off for many years which has been treated many times with oral antibiotics but it has always returned. She states that the infection is in the inguinal regions and between the breasts. Symptoms are worsening. No reports of f/c, n/v , d/c, chest pain, SOB. At baseline pt able to ambulate several blocks and climb several flights of stairs without chest pain and SOB. Consultations Plastic surgery Procedures s/p debridement of bilateral groin and chest wall tissue with flap elevation and closure of the groin wounds on 12/08/16 s/p closure of chest wall wound on 12/10/16 Hospital Course Pt was admitted and continued on IV antibiotics. She was seen by plastic surgery. She underwent debridement of bilateral groin and chest wall tissue with flap elevation and closure of the groin wounds on 12/08/16 and then closure of chest wall wound on 12/10/16. Once pain controlled and pt's wound stable, she was discharge home w/ home health for wound care. Discharge physical exam General: alert, cooperative, no distress, appears stated age Head: normocephalic, without obvious abnormality, atraumatic Eyes: conjunctivae/corneas clear. PERRL, EOM's intact Throat: lips, mucosa, and tongue normal. MMM Neck: supple, symmetrical, trachea midline, and no JVD Lungs: clear to auscultation bilaterally Heart: regular rate and rhythm, S1, S2 normal, no murmur, click, rub or gallop Abdomen: soft, non-tender, non-distended, bowel sounds normal; no masses or organomegaly Extremities: extremities normal, atraumatic, no cyanosis or edema Pulses: 2+ and symmetric Skin: dressing c/d/i Neurologic: grossly normal, no focal deficits Discharge Medications New Medications: Cephalexin* (Keflex*) 500 Mg Capsule 500 MG ORAL Q6H for 7 Days, #28 CAP 0 Refills Hydrocodone Bit/Acetaminophen 10-325* (Hydrocodon-Acetaminophn 10-325*) 1 Each Tablet 1 EA ORAL Q4H PRN, #40 TAB Continued Medications: No Known Medications* (NKM - No Known Medications*) . 0 ., 0 Refills Discharge Condition Upon Discharge: stable Discharge Disposition Patient was discharged to Home (01) Discharge Diagnoses: (1) Abscess (2) Hidradenitis suppurativa (3) Postoperative nausea and vomiting (4) UTI (urinary tract infection) Roberta Grider M.D. Dec 21, 2016 22:40
== END 2016-12-16 15:00 | disposition home or self-care (01) | DRG 577 ==
LOC: EDBEDREQ 12:53 → EMR 13:15 → 3E 13:32 → EDBEDREQ 13:38 → 3E 15:38
PROC: 0JB60ZZ Excision of Chest Subcutaneous Tissue and Fascia, Open Approach (ICD-10-PCS; principal; 2016-12-08 09:30)
PROC: 0JX60ZC Transfer Chest Subcutaneous Tissue and Fascia with Skin, Subcutaneous Tissue and Fascia, Open Approach (ICD-10-PCS; principal; 2016-12-08 09:30)
PROC: 0JBC0ZZ Excision of Pelvic Region Subcutaneous Tissue and Fascia, Open Approach (ICD-10-PCS; principal; 2016-12-08 09:30)
PROC: 0H89XZZ Division of Perineum Skin, External Approach (ICD-10-PCS; 2016-12-10)
PROC: 0JR Subcutaneous Tissue and Fascia, Replacement (ICD-10-PCS; 2016-12-10)
PROC: 0JRP07Z Replacement of Left Lower Leg Subcutaneous Tissue and Fascia with Autologous Tissue Substitute, Open Approach (ICD-10-PCS; 2016-12-10)
PROC: 0H8 Skin and Breast, Division (ICD-10-PCS; 2016-12-10)
PROC: 0JRN07Z Replacement of Right Lower Leg Subcutaneous Tissue and Fascia with Autologous Tissue Substitute, Open Approach (ICD-10-PCS; 2016-12-10)
PROC: 0H85XZZ Division of Chest Skin, External Approach (ICD-10-PCS; 2016-12-10)
PROC: 0H8 Skin and Breast, Division (ICD-10-PCS; 2016-12-10)
DX: L73.2 Hidradenitis suppurativa (principal); N39.0 Urinary tract infection, site not specified; L02.214 Cutaneous abscess of groin; R11.2 Nausea with vomiting, unspecified; B95.61 Methicillin susceptible Staphylococcus aureus infection as the cause of diseases classified elsewhere
CPT/HCPCS: 36415; 80048; 80053; 81003; 81025; 83690; 85025; 85610; 85730; 87040; 87086; 87181; 93005; 94003; 94150; 99285; J2180; J2250; J2405